=== PATIENT | male | born 1990 | race Caucasian/White ===

== ENCOUNTER 2016-09-28 02:35 | Emergency (ER) | payer MEDICAID, OTHER ==
[~2016-09-28] VITALS: Ht 185.4 cm; Wt 98.5 kg
[~2016-09-28 02:35] MED LIST: IBUP-1542 PO
[2016-09-28 02:37] VITALS: Ht 185.4 cm; Wt 98.5 kg
[2016-09-28] MEDS ORDERED: LORAZEPAM 1 MG TAB PO ONE ×2 (04:00→05:30)
[2016-09-28] MEDS ORDERED: LIDOCAINE 2% (MDV) 20 ML INJ INJ ONE (04:00)
[2016-09-28] MEDS ORDERED: IBUPROFEN 600 MG TAB PO ONE (04:00)
[2016-09-28] MEDS ORDERED: IBUP-1542 PO (04:50)
[2016-09-28] MEDS ORDERED: CEPH-443 PO (04:50)
[2016-09-28] MEDS ORDERED: SULF1TAB31 PO (04:50)
[2016-09-28 05:00] VITALS: BP 119/79; PULSE 88; RESP 18; TEMP 98.9
[2016-09-28] MEDS ORDERED: AMOXICILLIN/CLAV 875 MG TAB PO ONE (05:00)
[2016-09-28] MEDS ORDERED: HYDROCODONE/APAP (5/325) TAB PO ONE (05:00)
[2016-09-28] MEDS ORDERED: CEPHALEXIN 500 MG CAP PO ONE (05:00)
--- NOTE | 2016-09-28 05:37 | ERD ---
ER Documentation Chief Complaint Date/Time DATE: 09/28/16 TIME: 05:34 Chief Complaint R arm abscess r/t heroin injection last use this morning HPI 26-year-old male patient with a past medical history of methamphetamine and heroin use presents to the ED complaining of a right arm abscess that occurred 2 days ago. Reports that it started to become very painful and swollen. States that he last injected earlier this morning. Denies any fever, chills, nausea, vomiting, abdominal pain, chest pain, shortness of breath, wheezing. Reports that he smokes daily. Denies any alcohol use. ROS All systems reviewed and are negative except as per history of present illness. Medications Home Meds Active Scripts Sulfamethoxazole/Trimethoprim* (Bactrim Ds* Tablet) 1 Each Tablet, 1 TAB PO BID for 7 Days, #14 TAB Prov:VINCENZO ALAS-Thanh 09/28/16 Cephalexin* (Keflex*) 500 Mg Capsule, 500 MG PO QID for 7 Days, CAP Prov:VINCENZO ALAS-Thanh 09/28/16 Ibuprofen* (Motrin*) 600 Mg Tab, 600 MG PO Q6, #30 TAB Prov:VINCENZO ALAS-C 09/28/16 Ibuprofen* (Motrin*) 600 Mg Tab, 600 MG PO Q6H Y for PAIN AND OR ELEVATED TEMP, #30 TAB Prov:TIA GEIGER MD 03/04/16 Allergies Allergies: Coded Allergies: No Known Allergy (Unverified , 03/04/16) PMhx/Soc Medical and Surgical Hx: pt denies Medical Hx, pt denies Surgical Hx Hx Alcohol Use: Yes (once/ month) Hx Substance Use: Yes (meth, heroin) Hx Tobacco Use: Yes (5 cigs/ day) Smoking Status: Current every day smoker Physical Exam Vitals Vital Signs Date Time Temp Pulse Resp B/P Pulse Ox O2 Delivery O2 Flow Rate FiO2 09/28/16 02:37 99.7 108 20 125/85 96 Physical Exam Const: [id number], well-nourished. In no acute distress. Head: Atraumatic, normocephalic Eyes: Normal Conjunctiva without injection. No purulent discharge. PERRL. EOMI ENT: Normal external ear. Ear canal without erythema. Tympanic membrane pearly reid without effusion or bulging. Nasal canal clear with normal turbinates. Moist oropharynx without tonsillar exudates. Non-erythematous pharynx. Uvula midline. No drooling. No trismus. Neck: Full range of motion. No meningismus. No cervical lymphadenopathy. Resp: Clear to auscultation bilaterally. No wheezing, rhonchi, rales, or crackles. No accessory muscle use. No retractions. Cardio: Regular rate and rhythm. No murmurs, rubs or gallops. Abd: Soft, non tender, non distended. Normal bowel sounds. No palpable masses. No rebound tenderness. No guarding. Skin: No petechiae or rashes Back: No midline tenderness. No CVA tenderness. Ext: No cyanosis. Edema with punctate noted of dorsal aspect of patient's right forearm as well as edema noted on the right hand. Spontaneous purulent drainage noted on the right mid forearm with surrounding erythema. Full range of motion of bilateral upper extremities with flexion, extension, supination, pronation, of the PIP, DIP, MCP joints bilaterally. Neur: Awake and alert. Psych: Normal Mood and Affect Results 24 hrs Current Medications Medications (Trade) Dose Ordered Sig/Noemi Route PRN Reason Start Time Stop Time Status Last Admin Dose Admin Lidocaine (Xylocaine 2% (Mdv) 20 ml) 20 ml ONCE ONCE INJ 09/28/16 04:00 09/28/16 04:01 DC Lorazepam (Ativan) 1 mg ONCE ONCE PO 09/28/16 04:00 09/28/16 04:01 DC 09/28/16 04:06 Ibuprofen (Motrin) 600 mg ONCE ONCE PO 09/28/16 04:00 09/28/16 04:01 DC 09/28/16 04:06 Amoxicillin/ Clavulanate Potassium (Augmentin) 875 mg ONCE ONCE PO 09/28/16 05:00 09/28/16 05:01 DC 09/28/16 04:57 Cephalexin (Keflex) 500 mg ONCE ONCE PO 09/28/16 05:00 09/28/16 05:01 DC 09/28/16 04:58 Acetaminophen/ Hydrocodone Bitart (Corning (5/325)) 1 tab ONCE ONCE PO 09/28/16 05:00 09/28/16 05:01 DC 09/28/16 04:58 Lorazepam (Ativan) 1 mg ONCE ONCE PO 09/28/16 05:30 09/28/16 05:31 DC 09/28/16 05:08 Procedures/MDM This is a 26-year-old male patient with a past medical history of methamphetamine and heroin use presents to the ED complaining of right arm abscess. Patient is afebrile and nontoxic-appearing. Patient has normal vital signs. Patient claims that he was in heroin withdrawal however his last dosage use was earlier today. Patient was treated here in the ED with 2 mg Ativan, Corning, Bactrim, Keflex. Patient gave consent to perform incision and drainage. 11 blade scalpel used to make a small incision. Abscess Incision and Drainage with irrigation by me: Location: [Dorsal aspect of patient's right forearm] Anesthesia: [3 ccLocal 1% Lidocaine] Technique: [Irrigated. Disrupted loculations w/ instrumentation ] Packing: [None] Complications: [Neurovascularly intact post procedure] Copious purulent discharge drained from the abscess. Minimal bleeding noted. No complications noted. Keflex and Bactrim was prescribed to patient. Patient was strictly instructed to follow-up for drug rehabilitation. Instructed patient to return to the ED sooner for any worsening symptoms. Follow up with primary care physician or return to the ED in 2 days for a wound check. Patient's questions were answered. Patient understood and agreed with discharge plan. Departure Diagnosis: Primary Impression: Abscess Additional Impressions: Heroin abuse Methamphetamine abuse Condition: Stable Patient Instructions: Abscess, Incision And Drainage Referrals: COMMUNITY CLINICS YOU HAVE RECEIVED A MEDICAL SCREENING EXAM AND THE RESULTS INDICATE THAT YOU DO NOT HAVE A CONDITION THAT REQUIRES URGENT TREATMENT IN THE EMERGENCY DEPARTMENT. FURTHER EVALUATION AND TREATMENT OF YOUR CONDITION CAN WAIT UNTIL YOU ARE SEEN IN YOUR DOCTORS OFFICE WITHIN THE NEXT 1-2 DAYS. IT IS YOUR RESPONSIBILITY TO MAKE AN APPOINTMENT FOR FOLOW-UP CARE. IF YOU HAVE A PRIMARY DOCTOR --you should call your primary doctor and schedule an appointment IF YOU DO NOT HAVE A PRIMARY DOCTOR YOU CAN CALL OUR PHYSICIAN REFERRAL HOTLINE AT IF YOU CAN NOT AFFORD TO SEE A PHYSICIAN YOU CAN CHOSE FROM THE FOLLOWING [facility] CLINICS [facility] [address] [facility]. [facility] [address] [facility]. [facility] [address]. [facility] [address] [facility] [facility]. [facility] [address] [facility] [address] [facility]. [facility] YOU HAVE RECEIVED A MEDICAL SCREENING EXAM AND THE RESULTS INDICATE THAT YOU DO NOT HAVE A CONDITION THAT REQUIRES URGENT TREATMENT IN THE EMERGENCY DEPARTMENT. FURTHER EVALUATION AND TREATMENT OF YOUR CONDITION CAN WAIT UNTIL YOU ARE SEEN IN YOUR DOCTORS OFFICE WITHIN THE NEXT 1-2 DAYS. IT IS YOUR RESPONSIBILITY TO MAKE AN APPOINTMENT FOR FOLOW-UP CARE. IF YOU HAVE A PRIMARY DOCTOR --you should call your primary doctor and schedule and appointment IF YOU DO NOT HAVE A PRIMARY DOCTOR YOU CAN CALL OUR PHYSICIAN REFERRAL HOTLINE AT . IF YOU CAN NOT AFFORD TO SEE A PHYSICIAN YOU CAN CHOSE FROM THE FOLLOWING [facility] INSTITUTIONS: [facility] [address] [place] [address] [facility] [address] [place] [address] [facility] + [facility] [address] [place] [address] [facility] URGENT CARE/SPECIALTIES Additional Instructions: Follow up in 2 days in your clinic for wound check. You must complete all of your antiobiotics that have been prescribed to you. Call your primary care doctor TOMORROW for an appointment during the next 2-3 days for a referral for rehabilitation for drug use. See the doctor sooner or return here if your condition worsens before your appointment time - fever, nausea, vomiting, increased redness or swelling, etc. VINCENZO ALAS PA-C Sep 28, 2016 05:37
== END 2016-09-28 05:36 | disposition home or self-care (01) ==
LOC: FTE 02:35
DX: L02.413 Cutaneous abscess of right upper limb (principal); F11.10 Opioid abuse, uncomplicated; F15.10 Other stimulant abuse, uncomplicated; F17.210 Nicotine dependence, cigarettes, uncomplicated
CPT/HCPCS: 10060; Z7502; Z7610